=== PATIENT | female | born 1940 | race Caucasian/White ===

== ENCOUNTER → 2016-06-18 | Outpatient (CLI) | payer MEDICARE ==
--- NOTE | 2016-06-19 09:44 | MM ---
Reason for exam: screening (asymptomatic). Last mammogram was performed 1 year ago. History: Patient is postmenopausal. Physical Findings: A clinical breast exam by your physician is recommended on an annual basis and results should be correlated with mammographic findings. MG Screening Mammo w CAD Bilateral CC and MLO view(s) were taken. Prior study comparison: June 12, 2015, bilateral MG screening mammo w CAD. February 14, 2014, left breast MG work up mamm w CAD LT. The breast tissue is almost entirely fat. There is no discrete abnormality. No significant changes when compared with prior studies. ASSESSMENT: Negative, BI-RAD 1 RECOMMENDATION: Routine screening mammogram of both breasts in 1 year.
== END | disposition home or self-care (01) ==
LOC: RADMAMWWP 12:32
PROVIDERS: ATTEND Family Medicine
DX: Z12.31 Encounter for screening mammogram for malignant neoplasm of breast (principal)

== ENCOUNTER → 2016-07-23 | Outpatient (CLI) | payer MEDICARE ==
[~2016-07-23] MED LIST: FERUMOXYTOL 510 MG in SODIUM CHLORIDE 0.9% 50 ML IVPB ONE; SODIUM CHLORIDE 0.9% 250 ML in EMPTY BAG 1 BAG IV PRN; SODIUM CHLORIDE 0.9% 500 ML in EMPTY BAG 1 BAG IV PRN
[2016-07-23 10:42] VITALS: BP 170/69; PULSE 63; RESP 16; TEMP 98.5
== END | disposition home or self-care (01) ==
LOC: PROCWHC3 10:29
PROVIDERS: ATTEND Family Medicine
DX: D50.9 Iron deficiency anemia, unspecified (principal)
CPT/HCPCS: 96365; Q0138

== ENCOUNTER → 2016-08-01 | Outpatient (CLI) | payer MEDICARE ==
--- NOTE | 2016-08-01 13:21 | BD ---
EXAMINATION TYPE: MG DEXA axial skeleton. DATE OF EXAM: 08/01/2016 11:22 AM COMPARISON: NONE CLINICAL HISTORY: Height: 5 FT 1/2 IN Weight: 166NO FRAX RISK QUESTIONS: Alcohol (3 or more units per day): NO Family History (Parent hip fracture): NO Glucocorticoids (More than 3mos): NO (Ex: prednisone, prednisolone, methylprednisolone, dexamethasone, and hydrocortisone). History of Fracture in Adulthood: NO Secondary Osteoporosis: 1. Type 1 Diabetes: NO 2. Hyperthyroidism: NO 3. Menopause before 45: NO 4. Malnutrition: NO 5. Chronic liver disease: NO Rheumatoid Arthritis: NO Current Tobacco Use: NO RISK FACTORS HISTORY OF: Family History of Osteoporosis: YES Drink Alcohol: 1-2 TIMES A YEAR Active: YES Postmenopausal woman: EARLY 50'S MEDICATIONS: Additional Medications: GLIMIPERIDE,LISINOPRIL, GABAPENTIN, MUSCLE RELAXER, BLOOD PRESSURE Additional History: EXAM MEASUREMENTS: Bone mineral densitometry was performed using the [employer] System. Bone mineral density as measured about the Lumbar spine is: ----- L1-L4(G/cm2): 1.001 T Score Values are as follows: ----- L2: -2.3 ----- L3: -0.9 ----- L4: -2.1 ----- L1-L4: -1.5 PREV NOT DONE HERE Bone mineral density about the R hip (g/cm2): 0.750 Bone mineral density about the L hip (g/cm2): 0.770 T Score values are as follows: -----R Neck: -2.1 -----L Neck: -1.9 -----R Intertrochanter: -1.5 -----L Intertrochanter: -1.5 PREV NOT DONE HERE IMPRESSION: Osteopenia (T Score between -2.5 and -1 as noted by T score values There is slightly increased risk of fracture and the patient may be considered for treatment. Re-Screen 1-2 years. [facility] NOTE: T-SCORE=SD OF THE YOUNG ADULT MEAN.
== END | disposition home or self-care (01) ==
LOC: RADBDWWP 10:44
PROVIDERS: ATTEND Family Medicine
DX: M85.80 Other specified disorders of bone density and structure, unspecified site (principal)
CPT/HCPCS: 77080

== ENCOUNTER → 2017-01-03 | Outpatient (CLI) | payer MEDICARE ==
--- NOTE | 2017-01-03 21:47 | ECHOF ---
Referral Reason:R01.1 Cardiac Murmur MEASUREMENTS -------- HEIGHT: 157.5 cm WEIGHT: 72.6 kg BP: 141/61 IVSd: 1.1 cm (0.6 - 1.1) LVIDd: 4.7 cm (3.9 - 5.3) LVPWd: 1.3 cm (0.6 - 1.1) IVSs: 2.3 cm LVIDs: 2.8 cm LVPWs: 1.7 cm LAESV Index (A-L): 44.82 ml/m Ao Diam: 2.7 cm (2.0 - 3.7) AV Cusp: 1.3 cm (1.5 - 2.6) LA Diam: 4.1 cm (2.7 - 3.8) MV EXCURSION: 16.269 mm (> 18.000) MV EF SLOPE: 104 mm/s (70 - 150) EPSS: 0.4 cm MV E Pablo: 1.22 m/s MV DecT: 351 ms MV A Pablo: 0.96 m/s MV E/A Ratio: 1.28 RAP: 15.00 mmHg RVSP: 21.24 mmHg FINDINGS -------- Sinus rhythm. This was a technically good study. The left ventricular size is normal. There is borderline concentric left ventricular hypertrophy. Overall left ventricular systolic function is normal with, an EF between 55 - 60 %. The right ventricle is normal in size and function. The left atrium is mildly dilated. The right atrium is normal in size. Aortic valve is trileaflet and is mildly thickened. Mild mitral regurgitation is present. Trace tricuspid regurgitation present. The right ventricular systolic pressure, as measured by Doppler, is 21.24mmHg. Pulmonic valve appears structurally normal. The inferior vena cava is mildly dilated. The pericardium is normal. CONCLUSIONS -------- 1. Sinus rhythm. 2. Mild mitral regurgitation is present. 3. Trace tricuspid regurgitation present. 4. The right ventricular systolic pressure, as measured by Doppler, is 21.24mmHg. 5. Pulmonic valve appears structurally normal. 6. The inferior vena cava is mildly dilated. 7. The pericardium is normal. 8. This was a technically good study. 9. The left ventricular size is normal. 10. There is borderline concentric left ventricular hypertrophy. 11. Overall left ventricular systolic function is normal with, an EF between 55 - 60 %. 12. The right ventricle is normal in size and function. 13. The left atrium is mildly dilated. 14. The right atrium is normal in size. 15. Aortic valve is trileaflet and is mildly thickened. MANAGER MATERIALS MANAGEMENT: Ondina Ortiz RDCS
== END | disposition home or self-care (01) ==
LOC: RADECHMAIN 15:38
PROVIDERS: ATTEND Family Medicine
DX: I34.0 Nonrheumatic mitral (valve) insufficiency (principal); R01.1 Cardiac murmur, unspecified
CPT/HCPCS: 93306

== ENCOUNTER → 2017-01-22 | Outpatient (CLI) | payer MEDICARE ==
--- NOTE | 2017-01-22 10:29 | ECHOS ---
STRESS ECHOCARDIOGRAM DATE OF SERVICE: 01/22/2017 INDICATIONS: Shortness of breath. MEDICATIONS:: BASELINE HEART RATE: 77 BASELINE BLOOD PRESSURE: 162/69 MAXIMUM HEART RATE: 118 MAXIMUM BLOOD PRESSURE: 199/112 85% MPHR: 124 100% MPHR: 146 METS: 4 MAXIMUM STAGE REACHED: I TOTAL EXERCISE TIME: 3 minutes CLINICAL INFORMATION: Baseline EKG shows sinus rhythm, normal axis, normal intervals. Patient exercised on Jh protocol for a total of 3 minutes achieving 4 METs, 81% of predicted maximal heart rate without chest pain. Patient became extremely short of breath and hence, the stress test had to be stopped. Baseline echo shows normal left ventricular size, wall motion and systolic function. Post exercise, I do not see any exercise induced wall motion abnormalities. CONCLUSIONS: 1. Extremely poor exercise tolerance. 2. Inconclusive stress echo due to inability to attain target heart rate. 3. Consider further cardiac evaluation. MMODL / IJN: [id number] /
== END ==
LOC: RADNMMAIN 09:27
PROVIDERS: ATTEND Family Medicine
DX: R06.02 Shortness of breath (principal)
CPT/HCPCS: 93017; 93350

== ENCOUNTER → 2017-05-13 | Outpatient (CLI) | payer MEDICARE ==
[2017-05-14 11:56] LABS: Alpha 1 Anti-Trypsin 139 mg/dL (90 - 200)
[2017-05-18 21:35] LABS: Alternaria Alternata IgG 2.4 mcg/mL (< 13.6); Aspergillus fumigatus IgG Not detected (Not detected); Aureobasidium pullulans IgG < 2.0 mcg/mL (< 13.6); Cladosporium herbarium IgG 5.8 mcg/mL (< 14.7); Phoma ssp. IgG 2.3 mcg/mL (< 6.6); Saccaharomospora viridis Not detected (Not detected); Saccaharopoly. rectivirgula Not detected (Not detected)
== END | disposition home or self-care (01) ==
LOC: CPPFTMAIN 13:09
PROVIDERS: ATTEND Family Medicine
DX: R06.02 Shortness of breath (principal)
CPT/HCPCS: 36415; 82103; 82104; 83880; 85379; 86001; 86606; 86609; 94060; 94726; 94729

== ENCOUNTER → 2017-05-14 | Outpatient (CLI) | payer MEDICARE ==
[~2017-05-14] MED LIST changes: -FERUMOXYTOL 510 MG in SODIUM CHLORIDE 0.9% 50 ML IVPB ONE; +REGADENOSON 0.4 MG/5 ML SYRINGE IV ONE; -SODIUM CHLORIDE 0.9% 250 ML in EMPTY BAG 1 BAG IV PRN; -SODIUM CHLORIDE 0.9% 500 ML in EMPTY BAG 1 BAG IV PRN
--- NOTE | 2017-05-14 11:52 | EST ---
EXERCISE STRESS DATE OF SERVICE: 05/14/2017 AGE: 76 SEX: F HT: 5'2" WT: 170 PROTOCOL: Lexiscan Cardiolite Stress Test HEART RATE REST: 59 BLOOD PRESSURE REST: 138/70 MAXIMUM HEART RATE ACHIEVED: 70 MAXIMUM BLOOD PRESSURE: 193/46 85% MPHR: 124 100% MPHR: 146 INDICATIONS: Chest pain. CLINICAL INFORMATION: STRESS DATA: Pretesting physical examination showed a heart rate of 59, pressure is 138/70 mmHg. Baseline EKG showed sinus rhythm. The patient was given 0.4 mg of Lexiscan over 15 seconds per protocol. Max heart rate was 70 beats per minute and maximum pressure was 193/46 mmHg. Clinically, the patient did not have any symptoms of chest pain or discomfort and the EKG did not show any significant ST or T-wave abnormalities consistent with ischemia. CONCLUSION: 1. Nondiagnostic electrocardiogram stress testing in response to Lexiscan. 2. Please follow up on the Cardiolite portion on separate report. MMODL / IJN: [id number] /
--- NOTE | 2017-05-14 13:07 | NM ---
EXAMINATION TYPE: NM stress lexiscan cardiolite DATE OF EXAM: 05/14/2017 COMPARISON: NONE HISTORY: Shortness of breath, R06.02 and chest pain TECHNIQUE: After the intravenous administration of 10.7 mCi Tc 99m Sestamibi - Cardiolite resting SP ECT images acquired 55 minutes post injection. The patient received 0.4mg Lexiscan, 27.4 mCi Tc 99m Sestamibi - Stress images obtained [address] injection FINDINGS: Review of stress and rest SPECT images demonstrates no distinct perfusion abnormality. Gated analysi s shows normal wall motion with an estimated left ventricular ejection fraction of 64 %. IMPRESSION: No scintigraphic evidence for reversible ischemia.
== END | disposition home or self-care (01) ==
LOC: RADNMMAIN 08:02
PROVIDERS: ATTEND Family Medicine
DX: R06.02 Shortness of breath (principal)
CPT/HCPCS: 93017; 78452; A9500; J2785

== ENCOUNTER → 2017-05-29 | Outpatient (CLI) | payer MEDICARE ==
--- NOTE | 2017-05-29 15:06 | XR ---
EXAMINATION TYPE: XR chest 2V DATE OF EXAM: 05/29/2017 COMPARISON: NONE TECHNIQUE: PA and lateral views submitted. HISTORY: Shortness of breath FINDINGS: The lungs are clear and there is no pneumothorax, pleural effusion, or focal pneumonia. Heart size prominent. Atherosclerotic change aorta. Arthropathy of the shoulders. No overt failure. Atrophic jodi nge of the spine. IMPRESSION: 1. No acute process.
== END | disposition home or self-care (01) ==
LOC: RADXRMAIN 14:39
PROVIDERS: ATTEND Family Medicine
DX: R06.02 Shortness of breath (principal); E11.9 Type 2 diabetes mellitus without complications
CPT/HCPCS: 71046

== ENCOUNTER → 2017-07-02 | Outpatient (CLI) | payer MEDICARE ==
[~2017-07-02] MED LIST changes: +FERUMOXYTOL 510 MG in SODIUM CHLORIDE 0.9% 50 ML IVPB ONE; -REGADENOSON 0.4 MG/5 ML SYRINGE IV ONE; +SODIUM CHLORIDE 0.9% 500 ML in EMPTY BAG 1 BAG IV PRN
[2017-07-02 11:28] VITALS: BP 162/67; PULSE 69; RESP 16; TEMP 98.3
== END | disposition home or self-care (01) ==
LOC: PROCWHC3 11:12
PROVIDERS: ATTEND Family Medicine
DX: D50.9 Iron deficiency anemia, unspecified (principal)
CPT/HCPCS: 96365; Q0138

== ENCOUNTER 2017-07-24 08:05 | Day surgery (SDC) | payer MEDICARE ==
[2017-07-17 12:47] VITALS: BMI 31.1
[~2017-07-24 08:05] MED LIST changes: +ALPRAZolam 0.25 MG TAB PO PRN; +ALPRAZolam 0.5 MG TAB PO PRN; +ASPIRIN 325 MG TAB PO STA; -FERUMOXYTOL 510 MG in SODIUM CHLORIDE 0.9% 50 ML IVPB ONE; +NITROGLYCERIN SL TABS 0.4 MG TAB SUBLINGUAL PRN; +SODIUM CHLORIDE 0.9% 1,000 ML in EMPTY BAG 1 BAG IV ONE; -SODIUM CHLORIDE 0.9% 500 ML in EMPTY BAG 1 BAG IV PRN
[2017-07-24 08:36] VITALS: TEMP 98.6
[2017-07-24] MEDS ORDERED: INSULIN REGULAR 100 UNIT/ML VIAL SQ ONE (08:43)
[2017-07-24 08:49] LABS: Glucose,Whole Blood 206 mg/dL (75-99)
[2017-07-24 08:58] LABS: Basophils % (A) 1 %; Eosinophils # (A) 0.2 k/uL (0-0.7); Eosinophils % (A) 4 %; HCT 28.7 % (34.0-46.0); HGB 9.7 gm/dL (11.4-16.0); Lymphocytes # (A) 1.6 k/uL (1.0-4.8); Lymphocytes % (A) 29 %; MCH 31.1 pg (25.0-35.0); MCHC 33.8 g/dL (31.0-37.0); MCV 91.9 fL (80.0-100.0); Mean Platelet Volume 7.5; Monocytes # (A) 0.3 k/uL (0-1.0); Monocytes % (A) 5 %; Neutrophils # (A) 3.3 k/uL (1.3-7.7); Neutrophils % (A) 61 %; Platelet Count 209 k/uL (150-450); RBC 3.13 m/uL (3.80-5.40); RDW 13.3 % (11.5-15.5); WBC 5.5 k/uL (3.8-10.6)
[2017-07-24 09:05] LABS: Calcium 9.4 mg/dL (8.4-10.2); Potassium 4.2 mmol/L (3.5-5.1)
[2017-07-24] MEDS ORDERED: LIDOCAINE 2% INJ 20 MG/ML (20 ML MDV) ONE (09:10)
[2017-07-24] MEDS ORDERED: VERAPAMIL 2.5 MG/ML 2 ML AMP ONE (09:28)
[2017-07-24] MEDS ORDERED: MIDAZOLAM 2 MG/2 ML VIAL ONE (09:28)
[2017-07-24] MEDS: MIDAZOLAM 2 MG/2 ML VIAL IV ONE ×2 (09:42→10:15)
[2017-07-24] MEDS ORDERED: LIDOCAINE 2% INJ 20 MG/ML SQ ONE (09:46)
[2017-07-24] MEDS: LIDOCAINE 2% INJ 20 MG/ML SQ ONE ×2 (09:47→09:56)
[2017-07-24] MEDS ORDERED: fentaNYL (PF) 50 MCG/ML 2 ML AMP ONE (09:48)
[2017-07-24] MEDS ORDERED: HEPARIN SODIUM 1,000 UN/ML (10ML VL) ONE ×2 (09:48→10:31)
[2017-07-24] MEDS ORDERED: VERAPAMIL SYRINGE (5 MG/10 ML) INTRAARTER ONE (09:49)
[2017-07-24] MEDS ORDERED: HEPARIN SODIUM 1,000 UN/ML (10ML VL) IV ONE ×2 (09:51→10:31)
[2017-07-24] MEDS ORDERED: SODIUM CHLORIDE 0.9% 1,000 ML IV ONE (09:51)
[2017-07-24] MEDS: fentaNYL (PF) 50 MCG/ML 2 ML AMP IV ONE ×2 (09:51→10:43)
[2017-07-24] MEDS ORDERED: ADENOSINE 90 MG in SODIUM CHLORIDE 0.9% 60 ML IVP ONE (10:38)
[2017-07-24] MEDS ORDERED: IOPAMIDOL-370 125ML BTL INJ ONE (10:45)
[2017-07-24] MEDS ORDERED: RX INFO: IV CONTRAST WAS GIVEN 1 EACH MISC MISCELLANE PRN ×2 (10:52→10:53)
[2017-07-24] MEDS ORDERED: SODIUM CHLORIDE 0.9% 1,000 ML IV SCH (11:00)
[2017-07-24 11:32] LABS: Glucose,Whole Blood 163 mg/dL (75-99)
--- NOTE | 2017-07-24 11:36 | CC ---
CARDIAC CATHETERIZATION REPORT DATE OF SERVICE: July 24, 2017 PERFORMING PHYSICIAN: Raymond Jean-Baptiste MD, supervisor volunteer services. PROCEDURE PERFORMED: 1. Selective right and left coronary angiogram. 2. Left heart catheterization. 3. Fractional flow reserve of the LAD. INDICATION: This is a pleasant 76-year-old female patient with multiple risk factors for coronary artery disease, who continues to be symptomatic with chest discomfort and shortness of breath in spite of maximized medical treatment and in spite of multiple noninvasive testing. Because of that, heart catheterization was recommended. APPROACH: 1. Right radial artery. 2. Right common femoral artery. COMPLICATION: None. LEVEL OF SEDATION: Moderate with sedation length of 58 minutes. PROCEDURE DESCRIPTION: After obtaining an informed consent, the patient was brought to the cardiac laboratory technician. Initially the right radial artery was cannulated, but I had a hard time advancing the catheter at the level of the right elbow because of severe pain in the arm and because of that, the right radial approach was terminated and we pursued with the right femoral access. The right common femoral artery was cannulated using micropuncture technique, the micropuncture wire passed easily, then I placed a 6-Kosovan sheath in the right common femoral artery. After that, I did selective right and left coronary angiogram. I had a hard time engaging the right coronary artery because of the posterior takeoff. Finally I was able to engage it using an Amplatzer and an AL1 catheter. Selective left coronary angiogram was performed using a JL4 catheter. After that I did left heart catheterization using 6-Kosovan pigtail catheter. Then we did FFR of the LAD. Please see a separate paragraph for that. SELECTIVE CORONARY ANGIOGRAM: 1. The right coronary artery is a large caliber vessel and it is a dominant vessel. The proximal RCA has diffuse disease up to about 30% to 40%. The mid RCA has mild disease only and RCA distally bifurcates into PDA and PLV branches both are angiographically normal. 2. The left main is angiographically normal. It bifurcates into the left circumflex and left anterior descending artery. 3. The left circumflex is a large caliber vessel. It is a nondominant vessel. The left circumflex has mild to moderate disease in the proximal portion only. 4. The LAD: The proximal LAD just by the bifurcation of the first diagonal branch has a lesion appeared to be in the range of 60%. We did FFR and that came in to be 0.86. The mid LAD has mild disease only. The LAD distally appeared to be angiographically normal. The LAD gives rise into the first and second diagonal branches both have mild disease only. The second diagonal branch has moderate disease, but it is small caliber vessel. HEMODYNAMICS: The left ventricular end-diastolic pressure was 22 mmHg. No gradient was identified across the aortic valve. FFR OF THE LAD: Anticoagulation was initiated using heparin with continuous monitoring the ACT throughout the procedure. After that I did after zeroing the Doppler wire and equalizing between the Doppler wire and the guiding catheter which was JL4 guiding catheter, we did FFR by per IV adenosine infusion and the FFR came in to be 0.86. The procedure was completed without any complication. CONCLUSION: 1. Calcified right and left coronary systems. 2. 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 3. Mild to moderate disease involving the left circumflex coronary artery. 4. Moderate disease involving the proximal LAD with an FFR was performed and came in to be nonischemic at 0.86. 5. Elevated left ventricular end-diastolic pressure. POSTPROCEDURE MANAGEMENT: 1. Maximize medical treatment. 2. Follow up with the patient. MMODL / IJN: [id number] /
--- NOTE | 2017-07-24 11:36 | LTR ---
DATE OF SERVICE: 07/24/[address] Chou: Mrs. Kessler underwent a heart catheterization for continuous symptoms of exertional dyspnea concerning for angina. Heart catheterization revealed intermediate disease involving the mid LAD and we did fractional flow reserve and that came into be nonischemic and no need for stent. I want to thank you for allowing me to participate in her care and please do not hesitate to call if you have any questions or concerns. Sincerely, LUIS ANGEL / TIMN: [id number] /
[2017-07-24 12:24] VITALS: PULSE 52
[2017-07-24 17:59] VITALS: BP 145/65; RESP 20
== END 2017-07-24 18:25 | disposition home or self-care (01) ==
LOC: CATHCVL 08:05
PROVIDERS: ATTEND Internal Medicine Interventional Cardiology
DX: I25.110 Atherosclerotic heart disease of native coronary artery with unstable angina pectoris (principal); E11.22 Type 2 diabetes mellitus with diabetic chronic kidney disease; I12.9 Hypertensive chronic kidney disease with stage 1 through stage 4 chronic kidney disease, or unspecified chronic kidney disease; N18.9 Chronic kidney disease, unspecified; R01.1 Cardiac murmur, unspecified; D64.9 Anemia, unspecified; E78.00 Pure hypercholesterolemia, unspecified; Z79.84 Long term (current) use of oral hypoglycemic drugs; Z79.82 Long term (current) use of aspirin; Z79.51 Long term (current) use of inhaled steroids; Z79.899 Other long term (current) drug therapy; Z88.0 Allergy status to penicillin; Z87.891 Personal history of nicotine dependence
CPT/HCPCS: 93571; 93458; 80048; 85025; C1769 ×3; C1887; C1894 ×2; C1760; J2001; J2250; J3010; J1644; J0153; Q9967

== ENCOUNTER → 2017-08-18 | Outpatient (CLI) | payer MEDICARE ==
--- NOTE | 2017-08-18 09:23 | CT ---
EXAMINATION TYPE: CT chest wo con DATE OF EXAM: 08/18/2017 COMPARISON: NONE HISTORY: Patient complains of difficulty breathing. CT DLP: 665.2 mGycm. Automated Exposure Control for Dose Reduction was Utilized. TECHNIQUE: CT scan of the thorax is performed without IV contrast. High-resolution chest CT was perf ormed therefore there is limitation in visualization of pulmonary nodules given noncontiguous slices. FINDINGS: LUNGS: Dependent atelectasis versus in location on supine and prone imaging. Minimal subpleural retic ulation without honeycombing is also attributable to atelectasis. There is right middle lobe and ling ular peribronchial cuffing and cylindrical bronchiectasis. Symmetrical bronchiectasis is also seen wi thin the lower lobes. No mucus plugging or segmental atelectasis are seen. The central tracheal bronc hial tree is patent. No focal consolidation, pleural effusion or pneumothorax is visualized. Linear o f likely scarring is seen within the lingula. No findings to suggest interstitial pulmonary fibrosis. MEDIASTINUM: Lack of IV contrast is noted to limit evaluation for mediastinal and especially hilar ad enopathy. Prominent epicardial fat pad is seen. There is mild right hemidiaphragm elevation in compar arminda to the left. Moderate coronary artery calcifications are noted. There is enlargement of the main pulmonary artery measuring up to 3.0 cm, suggestive of underlying pulmonary arterial hypertension. T here are no definitive greater than 1 cm hilar or mediastinal lymph nodes. No cardiomegaly or peric ardial effusion is seen. OTHER: No additional significant abnormality is seen. IMPRESSION: 1. Bilateral asymmetric predominant cylindrical bronchiectasis and mild peribronchial cuffing. Differ ential includes postobstructive bronchiectasis, pulmonary aspiration diseases, an atypical infection such as mycobacterium avium complex. 2. No findings to suggest interstitial fibrosis. Evaluation for pulmonary masses limited given noncon tiguous slices on high-resolution chest CT. 3. Enlarged main pulmonary artery suggestive of underlying pulmonary arterial hypertension. 4. Moderate coronary artery calcifications, marker for coronary disease.
== END | disposition home or self-care (01) ==
LOC: RADCTMAIN 08:33
PROVIDERS: ATTEND Family Medicine
DX: J47.9 Bronchiectasis, uncomplicated (principal); J98.09 Other diseases of bronchus, not elsewhere classified
CPT/HCPCS: 71250

== ENCOUNTER → 2017-10-01 | Outpatient (CLI) | payer MEDICARE ==
[~2017-10-01] MED LIST changes: -ALPRAZolam 0.25 MG TAB PO PRN; -ALPRAZolam 0.5 MG TAB PO PRN; -ASPIRIN 325 MG TAB PO STA; +FERUMOXYTOL 510 MG in SODIUM CHLORIDE 0.9% 50 ML IVPB NR; -NITROGLYCERIN SL TABS 0.4 MG TAB SUBLINGUAL PRN; -SODIUM CHLORIDE 0.9% 1,000 ML in EMPTY BAG 1 BAG IV ONE; +SODIUM CHLORIDE 0.9% 500 ML in EMPTY BAG 1 BAG IV PRN
[2017-10-01 11:35] VITALS: BP 162/97; PULSE 56; RESP 16; TEMP 98.4
== END | disposition home or self-care (01) ==
LOC: PROCWHC3 11:22
PROVIDERS: ATTEND Family Medicine
DX: D50.9 Iron deficiency anemia, unspecified (principal)
CPT/HCPCS: 96365; Q0138

== ENCOUNTER 2017-10-22 07:48 | Day surgery (SDC) | payer MEDICARE ==
[2017-10-20 16:35] VITALS: BMI 31.1
[~2017-10-22 07:48] MED LIST changes: -FERUMOXYTOL 510 MG in SODIUM CHLORIDE 0.9% 50 ML IVPB NR; +LACTATED RINGERS 1,000 ML IV SCH; -SODIUM CHLORIDE 0.9% 500 ML in EMPTY BAG 1 BAG IV PRN
[2017-10-22 08:26] VITALS: RESP 16; TEMP 98.9
[2017-10-22] MEDS ORDERED: LIDOCAINE 1% 20 ML VIAL (10MG/ML) FOR IV START INTRADERMA ONE (08:26)
[2017-10-22 08:48] LABS: Glucose,Whole Blood 207 mg/dL (75-99)
[2017-10-22] MEDS ORDERED: PROPOFOL 10 MG/ML 20 ML VIAL IV ONE (09:08)
[2017-10-22] MEDS ORDERED: LIDOCAINE 1% INJ 10MG/ML (20 ML MDV) ONE (09:08)
[2017-10-22] MEDS ORDERED: LIDOCAINE 2% INJ 20 MG/ML INTRATRACH ONE (09:12)
[2017-10-22] MEDS ORDERED: EPINEPHrine 10 ML SYRINGE (0.1 MG/ML) MISCELLANE ONE (09:15)
[2017-10-22] MEDS ORDERED: LACTATED RINGERS 1,000 ML IV ONE (09:37)
[2017-10-22 10:01] VITALS: PULSE 88
[2017-10-22 10:25] VITALS: BP 144/68
--- NOTE | 2017-10-22 10:27 | P.PCN ---
Date of Procedure: 10/22/17 Preoperative Diagnosis: Abnormal CT chest, suspect atypical infection Postoperative Diagnosis: Same Surgeon: Linda Forrest Estimated Blood Loss (ml): 100 Condition: stable Disposition: same day Indications for Procedure: Abnormal CT chest, concern for atypical infection Operative Findings: EDAC Edematous mucosa Description of Procedure: After review of risks and benefits and discussion of alternative methods of diagnosis, the patient provided informed consent and is willing to proceed with evaluation is recommended. The patient, in endoscopy suite, was placed on continuous electrocardiogram, noninvasive blood pressure monitoring, and SpO2 monitoring. She was administered supplemental oxygen via nasal cannula and given IV sedation by the Department of anesthesia. The video bronchoscope was passed through the right nares and carried down to the level of the vocal cords the vocal cords were seen to be moving freely and phonation and respiration. The larynx is normal. The trachea was normal. The nic is sharp. The right mainstem bronchus was entered first where the right upper lobe, right middle lobe, and right lower lobe were identified. No endobronchial lesions were noted, however, the patient does have excessive airway collapse of the trachea and right mainstem which intermittently occludes the right mainstem bronchus. BAL and cytology brushing was performed at the right middle lobe. The bronchoscope was then directed into the left mainstem bronchus. The left upper lobe and lingula appeared somewhat edematous. The left lower lobe bronchus was quite edematous. BAL and cytology brushing was performed at the left lower lobe. Transbronchial biopsies were obtained from the left lower lobe, however, some bleeding occurred and further biopsies were unable to be obtained. The bleeding did cease after 2mL of epinephrine. The bronchoscope was then retracted and the procedure was terminated. The patient tolerated the procedure well. She was discharged to the recovery suite in stable and satisfactory position. The patient can be discharged home. Follow up in office in 1 week. Specimens sent for several studies. Post-operative CXR will be obtained.
--- NOTE | 2017-10-22 11:31 | XR ---
EXAMINATION TYPE: XR chest 1V portable DATE OF EXAM: 10/22/2017 COMPARISON: Prior chest 05/29/[address] chest 08/18/2017 HISTORY: Status post bronchoscopy TECHNIQUE: Single frontal view of the chest is obtained. FINDINGS: There is no pleural effusion or pneumothorax seen. Airspace disease suspected in the left upper lobe. The cardiac silhouette size is stable, enlarged. The osseous structures are intact. IMPRESSION: No evident complication status post bronchoscopy.
== END 2017-10-22 10:46 | disposition home or self-care (01) ==
LOC: ORWHC2ENDO 07:48
PROVIDERS: ATTEND Internal Medicine
DX: J42 Unspecified chronic bronchitis (principal); J84.112 Idiopathic pulmonary fibrosis; J82 Pulmonary eosinophilia, not elsewhere classified; J45.909 Unspecified asthma, uncomplicated; I25.10 Atherosclerotic heart disease of native coronary artery without angina pectoris; J47.9 Bronchiectasis, uncomplicated; E66.9 Obesity, unspecified; Z68.31 Body mass index [BMI] 31.0-31.9, adult; Z87.891 Personal history of nicotine dependence; E11.9 Type 2 diabetes mellitus without complications; Z79.84 Long term (current) use of oral hypoglycemic drugs; Z79.51 Long term (current) use of inhaled steroids; Z79.899 Other long term (current) drug therapy; Z88.0 Allergy status to penicillin
CPT/HCPCS: 87798 ×3; 87496; 87498; 87529; 88104; 88108; 88305; 88312; 87252; 87502; 87634; 87070; 87205; 87116; 87102; 87206; 71045; 31628; 31623; 31624; J2001 ×2; J0171; J2704; 31625

== ENCOUNTER → 2019-06-23 | Outpatient (CLI) | payer MEDICARE ==
--- NOTE | 2019-06-23 13:08 | CT ---
EXAMINATION TYPE: CT chest wo con DATE OF EXAM: 06/23/2019 COMPARISON: 08/18/2017 HISTORY: Pulmonary Fibrosis, Dyspnea CT DLP: 352.4 mGycm. Automated Exposure Control for Dose Reduction was Utilized. TECHNIQUE: CT scan of the thorax is performed without IV contrast. FINDINGS: LUNGS: Dependent atelectasis versus in location on supine and prone imaging. Minimal subpleural retic ulation without honeycombing is also attributable to atelectasis. There is right middle lobe and ling ular peribronchial cuffing and cylindrical bronchiectasis. 2 mm nodule left upper lobe axial image 15 . Symmetrical bronchiectasis is also seen within the lower lobes. No mucus plugging or segmental atelec tasis are seen. The central tracheal bronchial tree is patent. No focal consolidation, pleural effusion or pneumothorax is visualized. Linear of likely scarring is seen within the lingula. Interlobular septal thickening is seen to suggest mild interstitial pulmonar y fibrosis. . MEDIASTINUM: Lack of IV contrast is noted to limit evaluation for mediastinal and especially hilar ad enopathy. Prominent epicardial fat pad is seen. There is mild right hemidiaphragm elevation in compar arminda to the left. Moderate coronary artery calcifications are noted. There is enlargement of the main pulmonary artery measuring up to 3.2 cm, suggestive of underlying pulmonary arterial hypertension. H eart size is mildly enlarged. Atherosclerotic change of the aorta noted. OTHER: No additional significant abnormality is seen. Hypertrophic and degenerative change of the sp ine. IMPRESSION: 1. Pulmonary arteries increased in size bilaterally measuring 3.2 cm on the right 2.8 cm on the left, correlate for pulmonary arterial hypertension. 3. Dense coronary artery atherosclerotic disease correlate clinically. 3. Trace of pericardial fluid with cardiomegaly. 4. There does appear to be interlobular septal thickening at the lung bases and there is evidence of bronchiectasis. Findings are felt to be suggestive of interstitial pulmonary fibrosis involving the l verito bases. 5. There is a 2 mm left upper lobe pulmonary nodule too small to characterize and could be followed o n a 12 month basis. Likely benign.
== END | disposition home or self-care (01) ==
LOC: RADCTMAIN 12:32
PROVIDERS: ATTEND Internal Medicine Pulmonary Disease
DX: J47.9 Bronchiectasis, uncomplicated (principal); J84.10 Pulmonary fibrosis, unspecified; R91.1 Solitary pulmonary nodule; J98.4 Other disorders of lung; J82 Pulmonary eosinophilia, not elsewhere classified; R06.00 Dyspnea, unspecified; E66.9 Obesity, unspecified; E11.9 Type 2 diabetes mellitus without complications; Z88.0 Allergy status to penicillin
CPT/HCPCS: 71250

== ENCOUNTER → 2019-11-03 | Outpatient (CLI) | payer MEDICARE ==
--- NOTE | 2019-11-03 15:00 | XR ---
EXAMINATION TYPE: XR cervical spine comp DATE OF EXAM: 11/03/2019 TECHNIQUE: Frontal, lateral, oblique, and open mouth view of the cervical spine are obtained. HISTORY: M54.2 cervicalgia . Numbness of bilateral hands, more pain on the right side. No known inju ry. COMPARISON: None FINDINGS: The cervical spine is visualized in its entirety from C1 thru the top of T1 level. There i s straightening of the cervical lordosis. Grade 1 anterolisthesis of C3 on C4 and of C2 on C3. No acu te fracture or subluxation. There is multilevel disc space narrowing and degenerative spurring of C4- C7. Multilevel uncovertebral hypertrophy and facet arthropathy is seen. Neural foramina demonstrate b eli encroachment at C3-4 bilaterally, and C4-C5 and C5-6 on the left. The atlantoaxial joint is withi n normal limits on the open mouth view. The pre-vertebral soft tissue appears within normal limits. IMPRESSION: 1. No acute fracture or subluxation is seen in the cervical spine. 2. Multilevel degenerative changes as above.
== END | disposition home or self-care (01) ==
LOC: RADXRMAIN 11:58
PROVIDERS: ATTEND Nurse Practitioner Gerontology
DX: M47.812 Spondylosis without myelopathy or radiculopathy, cervical region (principal)
CPT/HCPCS: 72050

== ENCOUNTER 2020-02-25 08:52 | Day surgery (SDC) | payer MEDICARE ==
[2020-02-23 12:41] VITALS: BMI 30.9
[~2020-02-25 08:52] MED LIST changes: +ALPRAZolam 0.25 MG TAB PO PRN; +ALPRAZolam 0.5 MG TAB PO PRN; +ASPIRIN 325 MG TAB PO ONE; -LACTATED RINGERS 1,000 ML IV SCH; +NITROGLYCERIN SL TABS 0.4 MG TAB SUBLINGUAL PRN; +SODIUM CHLORIDE 0.9% 1,000 ML in EMPTY BAG 1 BAG IV ONE
[2020-02-25 09:23] LABS: Glucose,Whole Blood 138 mg/dL (75-99)
[2020-02-25 09:33] LABS: Basophils # (A) 0.1 k/uL (0-0.2); Basophils % (A) 1 %; Eosinophils # (A) 0.2 k/uL (0-0.7); Eosinophils % (A) 3 %; HCT 26.7 % (34.0-46.0); HGB 8.9 gm/dL (11.4-16.0); Lymphocytes # (A) 1.1 k/uL (1.0-4.8); Lymphocytes % (A) 21 %; MCH 32.1 pg (25.0-35.0); MCHC 33.4 g/dL (31.0-37.0); MCV 96.1 fL (80.0-100.0); Monocytes # (A) 0.4 k/uL (0-1.0); Monocytes % (A) 7 %; Neutrophils # (A) 3.7 k/uL (1.3-7.7); Neutrophils % (A) 68 %; Platelet Count 209 k/uL (150-450); RBC 2.78 m/uL (3.80-5.40); RDW 12.8 % (11.5-15.5); WBC 5.5 k/uL (3.8-10.6)
[2020-02-25 09:44] LABS: Potassium 5.3 mmol/L (3.5-5.1)
[2020-02-25] MEDS ORDERED: fentaNYL (PF) 50 MCG/ML 2 ML AMP ONE (11:11)
[2020-02-25] MEDS ORDERED: BENZOCAINE SPRAY 1 CAN MUCOUS MEM ONE ×2 (11:25→11:32)
[2020-02-25] MEDS ORDERED: IV FLUID CONTINUATION 1,000 ML IV ONE (11:32)
[2020-02-25] MEDS ORDERED: fentaNYL (PF) 50 MCG/ML 2 ML AMP IVP ONE (11:34)
[2020-02-25] MEDS ORDERED: MIDAZOLAM 2 MG/2 ML VIAL IVP ONE ×2 (11:34→11:38)
[2020-02-25] MEDS ORDERED: HEPARIN SODIUM 1,000 UN/ML (10ML VL) ONE (11:45)
[2020-02-25] MEDS ORDERED: VERAPAMIL 2.5 MG/ML 2 ML AMP ONE (11:45)
[2020-02-25] MEDS ORDERED: LIDOCAINE 1% INJ 10MG/ML (20 ML MDV) ONE (11:45)
[2020-02-25] MEDS ORDERED: fentaNYL (PF) 50 MCG/ML 2 ML AMP IV ONE (11:59)
[2020-02-25] MEDS ORDERED: MIDAZOLAM 2 MG/2 ML VIAL IV ONE (11:59)
[2020-02-25] MEDS ORDERED: LIDOCAINE 1% INJ 10MG/ML (20 ML MDV) SQ ONE (12:17)
[2020-02-25] MEDS ORDERED: HYDROmorphone 0.5 MG/0.5 ML SYRINGE IVP ONE (12:22)
[2020-02-25] MEDS ORDERED: RX INFO: IV CONTRAST WAS GIVEN 1 EACH MISC MISCELLANE PRN (12:49)
[2020-02-25] MEDS ORDERED: IOPAMIDOL-370 125ML BTL INJ ONE (12:54)
[2020-02-25] MEDS ORDERED: SODIUM CHLORIDE 0.9% 1,000 ML IV SCH (13:00)
[2020-02-25] MEDS ORDERED: hydrALAZINE HCL 20 MG/ML 1 ML VIAL ONE (13:01)
--- NOTE | 2020-02-25 13:24 | ECHOT ---
TRANSESOPHAGEAL ECHOCARDIOGRAM DATE OF SERVICE: February 25, 2020. INDICATION: Mitral regurgitation. COMPLICATION: None. LEVEL OF SEDATION: Moderate with sedation length of 20 minutes. PROCEDURE DESCRIPTION: After obtaining an informed consent, the patient was brought to the transesophageal echocardiogram suite. Pulse oximetry and heart rate monitors were attached the patient. Subsequently, the patient was given 2 mg of Versed and 50 mcg of fentanyl in divided doses. After that, the transesophageal echocardiogram was advanced through the bite guard to the mid esophageus where 2D echocardiogram images as well as color Doppler images of various cardiac structures were obtained. The MAREN was performed using 2D as well as continuous and pulse-wave Doppler, as well as color Doppler. FINDINGS: The left ventricular dimension and systolic function appeared to be normal. The ejection fraction appeared to be in the range of 50% to 55%. The right ventricle appeared to be of normal size and function with left atrium appeared to be dilated. Left atrial appendage appeared to be intact. The aortic valve is a trileaflet valve without stenosis with trace insufficiency. The mitral valve seems to be thickened with evidence of moderate mitral regurgitation. There was moderate tricuspid regurgitation seen. CONCLUSION: 1. Normal left ventricular dimension and systolic function. 2. Normal right ventricular dimension and systolic function. 3. Dilated left atrium. 4. Normal left atrial appendage. 5. Intact interatrial septum. 6. Trileaflet aortic valve without stenosis with mild insufficiency. 7. Thickened mitral valve leaflets with moderate mitral regurgitation. 8. Moderate tricuspid regurgitation. 9. Trace pericardial effusion. MMODL / IJN: [id number] /
--- NOTE | 2020-02-25 15:01 | CC ---
CARDIAC CATHETERIZATION REPORT DATE OF SERVICE: February 25, 2020 PERFORMING PHYSICIAN: Raymond Jean-Baptiste MD. PROCEDURE PERFORMED: 1. Right heart catheterization. 2. Selective right and left coronary angiogram. INDICATION: This is a 79-year-old female patient with history of coronary artery disease and valvular heart disease with mitral and tricuspid regurgitation, who was experiencing increasing in the symptoms of shortness of breath with minimal exertion. She underwent an echocardiogram which revealed evidence of moderate to severe mitral regurgitation. She underwent a MAREN today which revealed only moderate MR and she was brought today to undergo a heart catheterization. APPROACH: Right common femoral vein and right common femoral artery. COMPLICATION: None. LEVEL OF SEDATION: Moderate with sedation length of 25 minutes. PROCEDURE DESCRIPTION: After obtaining informed consent, the patient was brought to the cardiac cath lab tech. The right common femoral vein and right common femoral arteries were cannulated using micropuncture technique, the micropuncture wire passed easily. Then I placed a 6- Algerian sheath at the right common femoral artery. I also placed a 7-Algerian sheath in the right common femoral vein. Right heart catheterization was performed using 6-Algerian Freedom catheter. Selective right and left coronary angiogram performed using an AR catheter for the right and JL4 catheters for the left. The procedure was completed without any complication. HEMODYNAMICS: 1. The pulmonary capillary wedge pressure was 24 mmHg. 2. PA pressures were as follows: Systolic 52 and end-diastolic of 20 and mean of 32 mmHg. 3. RV pressures were as follows: Systolic is 50 and end-diastolic of 18 mmHg. 4. Right atrial pressure was 16 mmHg. SELECTIVE CORONARY ANGIOGRAM: 1. Right coronary artery is a large caliber vessel and it is a dominant vessel. The proximal RCA has tubular lesion appeared to be in the range of 30% to 40%. The mid RCA has mild disease only and the RCA distally appeared to be angiographically normal. The RCA is calcified. 2. The left main appeared to be angiographically normal. It bifurcates into left circumflex and left anterior descending artery. 3. The left circumflex is a large caliber vessel it is a dominant vessel. The left circumflex appeared to have mild disease only in the midportion and appeared to be calcified. 4. The LAD: The proximal LAD appeared to have mild disease only. The mid LAD has a tubular lesion appeared to be in the range of 60% to 70%. This is by the bifurcation of a large diagonal branch which seems to be normal. The mid and distal LAD appeared to have mild disease only. The LAD is definitely calcified. CONCLUSION: 1. Pulmonary hypertension. 2. Elevated pulmonary capillary wedge pressure. 3. Calcified right and left coronary systems. 4. Intermediate to severe disease involving the mid LAD appeared to be in the range of 60% to 70%. 5. Engaging the right coronary artery was performed using an AR catheter. POSTPROCEDURE MANAGEMENT: 1. Consider maximized medical treatment. 2. Aggressive cholesterol control. 3. Diuretics. 4. Consider PCI of the LAD if the patient continues to be symptomatic in spite of maximized medical treatment. MMODL / IJN: [id number] /
[2020-02-25 18:41] VITALS: RESP 16
[2020-02-25 18:43] VITALS: BP 131/56; PULSE 52
[2020-02-25 19:26] VITALS: TEMP 97.7
== END 2020-02-25 20:20 | disposition home or self-care (01) ==
LOC: CATHCVL 08:52 → 3NCARDOBS 12:57 → CATHCVL 20:20
PROVIDERS: ATTEND Internal Medicine Interventional Cardiology
DX: I25.10 Atherosclerotic heart disease of native coronary artery without angina pectoris (principal); I10 Essential (primary) hypertension; I27.20 Pulmonary hypertension, unspecified; I08.1 Rheumatic disorders of both mitral and tricuspid valves; E11.9 Type 2 diabetes mellitus without complications; J84.112 Idiopathic pulmonary fibrosis; E78.5 Hyperlipidemia, unspecified; E78.00 Pure hypercholesterolemia, unspecified; Z79.82 Long term (current) use of aspirin; Z79.84 Long term (current) use of oral hypoglycemic drugs; Z79.899 Other long term (current) drug therapy
CPT/HCPCS: 93312; 93325; 93456; 80048; 85025; C1769 ×3; C1751; C1894; J2250; J0360; J2001; J3010; J1170; Q9967

== ENCOUNTER → 2020-03-23 | Outpatient (CLI) | payer MEDICARE ==
--- NOTE | 2020-03-23 15:59 | US ---
EXAMINATION TYPE: US venous doppler duplex LE RT DATE OF EXAM: 03/23/2020 1:00 PM COMPARISON: NONE CLINICAL HISTORY: M79.661 Pain in Rt lower limb. Right lower leg swelling SIDE PERFORMED: Right TECHNIQUE: The lower extremity deep venous system is examined utilizing real time linear array sonog caroline with graded compression, doppler sonography and color-flow sonography. VESSELS IMAGED: Common Femoral Vein Deep Femoral Vein Greater Saphenous Vein * Femoral Vein Popliteal Vein Small Saphenous Vein * Proximal Calf Veins (* superficial vessels) Right Leg: Appears negative for DVT 3.0 x 1.0 x 1.8cm Camacho's cyst seen in right popliteal fossa Grayscale, color doppler, spectral doppler imaging performed of the deep veins of the right lower ext remity. There is normal flow, compressibility, vascular waveforms. IMPRESSION: No ultrasound evidence for acute DVT in the right lower extremity. Small popliteal cyst.
== END | disposition home or self-care (01) ==
LOC: RADUSWWP 12:23
PROVIDERS: ATTEND Internal Medicine Hematology & Oncology
DX: M71.21 Synovial cyst of popliteal space [Baker], right knee (principal); Z88.0 Allergy status to penicillin

== ENCOUNTER → 2023-01-17 | Outpatient (CLI) | payer MEDICARE ==
--- NOTE | 2023-01-18 08:31 | PE ---
EXAMINATION TYPE: PET CT fusion skull to thigh DATE OF EXAM: 01/17/2023 CLINICAL INDICATION:Female, 82 years old with history of R91.8; TECHNIQUE: Following the intravenous administration of 9.86 mCi of F-18 FDG, whole body images are performed from the skull base to the midthigh. Images are reviewed on the computer in the coronal, a xial, and sagittal planes. Reconstructed rotating images are created on independent workstation and reviewed on the computer. A non-contrast CT is performed in conjunction with the PET scan. Glucose level 122 mg/dL CT DLP: 384 mGycm, Automated exposure control for dose reduction was used. COMPARISON: CT 12/17/2022, PET/CT None, FINDINGS: Mediastinal SUV mean is 1.8. Hepatic parenchyma SUV mean is 2.6. SKULL BASE AND NECK: No suspicious radiotracer activity. CHEST, MEDIASTINUM, AND HILAR REGION: * Right upper lung airspace consolidation with patchy airspace disease extending to the periphery. 5 .1 x 4.3 cm and max SUV 9.9 * Subcarinal lymph node measuring 13 mm Max SUV 6.0 * low paratracheal lymph node measuring up to 2.6 cm Max SUV 7.8 * Lymphadenopathy extending along the medial aspect of the right lower lobe just inferior aspect of the hilum max SUV 5. ABDOMEN AND PELVIS: No suspicious radiotracer activity. MUSCULOSKELETAL STRUCTURES: No suspicious radiotracer activity. Right shoulder rotator cuff uptake li elieser secondary to degeneration with SUV 3.3 on the left 2.[address]: Bilaterally aphakia, atherosclerosis of the arterial vasculature. Scattered colonic diverti culosis. Right upper lung mass does obstruct multiple large airways. IMPRESSION: 1. 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 No evid ence for metastatic disease below the diaphragm. 2. Airspace opacities extending away from this mass could represent superimposed infectious process due to obstruction.
== END | disposition home or self-care (01) ==
LOC: RADPETMAIN 15:26
PROVIDERS: ATTEND Family Medicine
DX: R91.8 Other nonspecific abnormal finding of lung field (principal)
CPT/HCPCS: 78815; A9552

== ENCOUNTER 2023-01-31 12:16 | Day surgery (SDC) | payer MEDICARE ==
[~2023-01-31 12:16] MED LIST changes: -ALPRAZolam 0.25 MG TAB PO PRN; -ALPRAZolam 0.5 MG TAB PO PRN; -ASPIRIN 325 MG TAB PO ONE; +ATROPINE SULFATE 0.4 MG/ML 1 ML VIAL IM ONE; +LACTATED RINGERS 1,000 ML IV SCH; +LIDOCAINE 1% (10MG/ML) FOR IV START INTRADERMA PRN; -NITROGLYCERIN SL TABS 0.4 MG TAB SUBLINGUAL PRN; -SODIUM CHLORIDE 0.9% 1,000 ML in EMPTY BAG 1 BAG IV ONE
[2023-01-31 13:07] LABS: Glucose,Whole Blood 153 mg/dL (70-110)
[2023-01-31] MEDS ORDERED: fentaNYL (PF) 50 MCG/ML 2 ML AMP ONE (13:16)
[2023-01-31] MEDS ORDERED: PROPOFOL 10 MG/ML 20 ML VIAL IV ONE (13:16)
[2023-01-31] MEDS ORDERED: PHENYLEPHRINE-0.9% NACL SYG 1,000 MCG/10 ML SYRINGE ONE (13:16)
[2023-01-31] MEDS ORDERED: NEOSTIGMINE 1 MG/ML 10 ML VIAL ONE (13:16)
[2023-01-31] MEDS ORDERED: ROCURONIUM 10 MG/ML (5 ML VIAL) IV ONE (13:16)
[2023-01-31] MEDS ORDERED: LIDOCAINE 2% (PF) 20 MG/ML 5 ML VIAL ONE (13:16)
[2023-01-31] MEDS ORDERED: MIDAZOLAM 2 MG/2 ML VIAL ONE (13:16)
[2023-01-31] MEDS ORDERED: SUCCINYLCHOLINE CHLORIDE 200 MG/10 ML VIAL IV ONE (13:16)
[2023-01-31] MEDS ORDERED: GLYCOPYRROLATE 0.2 MG/ML 2 ML VIAL ONE (13:16)
[2023-01-31 14:23] VITALS: TEMP 97
[2023-01-31 14:37] LABS: Glucose,Whole Blood 143 mg/dL (70-110)
--- NOTE | 2023-01-31 14:46 | XR ---
EXAMINATION TYPE: XR chest 1V portable DATE OF EXAM: 01/31/2023 COMPARISON: 10/22/2017 HISTORY: Postbronchoscopy TECHNIQUE: Single frontal view of the chest is obtained. FINDINGS: Right upper lobe consolidation. There is a mass in the right upper lobe measuring 2.3 cm. Atherosclerotic change aorta. Prominence of the upper mediastinum could reflect adenopathy. Cardiac e nlargement is seen and there is underlying COPD. No pleural effusion. No sizable pneumothorax. Diffus e osteopenia. IMPRESSION: 1. Findings suspicious for an upper lobe mass and right lower lobe consolidation which could be on th e basis of adjacent infiltrate. 2. No pneumothorax.
--- NOTE | 2023-01-31 15:08 | PCN ---
PROCEDURE NOTE PROCEDURES PERFORMED: Bronchoscopy, airway examination, therapeutic lavage; bronchoalveolar lavage, right upper lobe; brushes, right upper lobe; transbronchial endobronchial biopsies, right upper lobe and transbronchial needle aspiration, station 7 or subcarinal node. PREOPERATIVE DIAGNOSIS: Rule out cancer. POSTOPERATIVE DIAGNOSIS: Rule out cancer. CO-SURGEON: Dr. Jimenez. DESCRIPTION OF PROCEDURE: The procedure took place in room #1 [facility]. There was informed consent and universal timeout. Anesthesia provided general anesthesia. After the patient was anesthetized, and on the ventilator, the bronchoscope was inserted through the bronchoscope adapter connected to the endotracheal tube. The bronchoscope was pushed through the endotracheal tube into the trachea. Tracheal nic was very widened and thick. Next, we did a thorough evaluation of the left lung. Left upper lobe proper and its 2 segments, lingula and its 2 segments and left lower lobe and its 4 segments were all found to be normal. Next, we evaluated the right lung, and noted that the right middle lobe and right lower lobe were normal. There was distinct abnormalities noted in the right upper lobe, the nic the right upper lobe from the bronchus intermedius was very thickened. Next, under fluoroscopic guidance, we did brushes to the area of the right upper lobe and that abnormal nic. Subsequent to that, under fluoroscopic guidance. We did endobronchial biopsies and transbronchial biopsies to the right upper lobe. Finally, we washed the right upper lobe. Next we did TBNA (transbronchial needle aspiration), through the subcarinal area, to sample of station 7 node. The patient tolerated the procedure well. There was minimal bleeding. All the specimens will be sent to the laboratory for analysis. A chest x-ray was ordered to rule out pneumothorax. There was no immediate complication. The patient tolerated the procedure well. I did have a chance to speak to the after the procedure. MMODL / IJN: [id number] / ISABELA
[2023-01-31 15:37] VITALS: BP 142/75; PULSE 75; RESP 18
[2023-01-31 23:31] LABS: Appearance,BF Bloody (Clear); RBC, Body Fluid 71500 /UL (0-2000)
[2023-02-03 10:05] LABS: Nucleated Cells, Body Fluid 100 /UL
== END 2023-01-31 15:56 | disposition home or self-care (01) ==
LOC: ORWHC2ENDO 12:16
PROVIDERS: ATTEND Internal Medicine Critical Care Medicine
DX: C34.11 Malignant neoplasm of upper lobe, right bronchus or lung (principal); E66.01 Morbid (severe) obesity due to excess calories; E11.9 Type 2 diabetes mellitus without complications; J45.909 Unspecified asthma, uncomplicated; J84.10 Pulmonary fibrosis, unspecified; I12.9 Hypertensive chronic kidney disease with stage 1 through stage 4 chronic kidney disease, or unspecified chronic kidney disease; N18.2 Chronic kidney disease, stage 2 (mild); M06.9 Rheumatoid arthritis, unspecified; Z87.891 Personal history of nicotine dependence; Z88.1 Allergy status to other antibiotic agents; Z88.0 Allergy status to penicillin; Z79.899 Other long term (current) drug therapy; Z79.51 Long term (current) use of inhaled steroids; Z68.27 Body mass index [BMI] 27.0-27.9, adult
CPT/HCPCS: 87798 ×3; 87496; 87498; 87529; 88104; 88108; 88305; 89050; 88342; 87502; 87634; 88341; 87070; 87205; 87116; 87102; 87206; 71045; 31629; 31625; 31623; 31624; J2250; J0330; J0461; J2710; J3010; J2704; J2001; J2371

== ENCOUNTER → 2023-02-27 | Outpatient (CLI) | payer MEDICARE ==
--- NOTE | 2023-03-10 00:42 | MR ---
EXAMINATION TYPE: MR brain wo/w con DATE OF EXAM: 02/27/2023 COMPARISON: Correlation PET/CT 01/17/2023 HISTORY: 82-year-old female C34.11, Lung cancer. TECHNIQUE: Multiplanar, multisequence images of the brain and brainstem were acquired before and aft er administration of 7 mL IV Gadavist. Diffusion weighted imaging is performed. FINDINGS: No evidence for acute infarction, hemorrhage, mass, mass effect, midline shift, herniation, effacemen t of basal cisterns, or extra-axial fluid collection. Mild age-related cerebral cortical volume loss. No hydrocephalus. Major intracranial flow voids are intact. There is a focal 3 mm nodular protuberance projecting poste riorly near the right carotid terminus. T2/FLAIR weighted sequences show mild scattered right periventricular deep white matter regions of sally th cerebral hemispheres. Midline structures demonstrate normal morphology. The craniocervical junction is normal. Post contrast images demonstrate no evidence of pathologic enhancement. Dural venous sinuses are pat ent. Mild mucosal thickening ethmoid air cells. Globes are intact. IMPRESSION: 1. No acute intracranial abnormality seen. No evidence for intracranial metastases. 2. Mild burden of chronic small vessel ischemic disease and mild age-related cerebral atrophy. 3. Findings suspicious for a 3 mm saccular aneurysm projecting posteriorly from the distal right ICA. Recommend further evaluation/confirmation either with thin cut CTA head versus MR angiography.
== END | disposition home or self-care (01) ==
LOC: RADMRIMAIN 15:05
PROVIDERS: ATTEND Internal Medicine Hematology & Oncology
DX: I67.82 Cerebral ischemia (principal); G31.1 Senile degeneration of brain, not elsewhere classified; C34.11 Malignant neoplasm of upper lobe, right bronchus or lung
CPT/HCPCS: 70553; A9585

== ENCOUNTER → 2023-06-20 | Outpatient (CLI) | payer MEDICARE ==
[2023-06-20 10:54] LABS: African American GFR (CKD) 69 (>60 ml/min/1.73 sqM); Blood Urea Nitrogen 24 mg/dL (7-17); Non-African American GFR(CKD) 60 (>60 ml/min/1.73 sqM)
--- NOTE | 2023-06-20 12:34 | CT ---
EXAMINATION: CT CHEST, ABDOMEN AND PELVIS WITH IV CONTRAST DATE OF EXAMINATION: 06/20/2023. COMPARISON: PET/CT on 01/17/2023.. INDICATION: Lung cancer. PROCEDURE: Axial CT of the chest, abdomen and pelvis was performed following the intravenous adminis tration of 80 ml Isovue 300. Coronal and sagittal reformats were performed. CT dose lowering techniq ues were used, to include: automated exposure control, adjustment for patient size, and/or use of ite rative reconstruction. FINDINGS: CHEST: Mediastinum and Sara: The thickness of the precarinal and pretracheal lymph node now measures up to 2 cm in diameter, previously 2.5 cm. The overall size of the right hilar mass measures approximately 3 .2 x 2.1 cm, previously approximately 4.3 x 5.1 cm in diameter. No left hilar adenopathy is seen. Pleural and Pericardial spaces: There are no pleural or pericardial effusions. Cardiovascular: There is mild vascular calcification throughout the thoracic aorta without evidence o f aneurysmal dilation or dissection. Moderate cardiomegaly and severe coronary artery calcifications are seen. Pulmonary Artery: There are no central pulmonary arterial filling defects. Lung Parenchyma and Airways: Parenchymal abnormalities are seen surrounding the right perihilar and u pper lobe mass compatible with treatment changes. There are additional basilar opacities and subpleur al areas of opacity which is compatible with chronic and fibrotic changes. There is no focal area of consolidation otherwise seen. ABDOMEN: Liver and Biliary system: Normal. Adrenal glands: Normal. Kidneys and ureters: Normal. Spleen: Normal. Pancreas: Normal. Gallbladder: Surgically absent. Lymph nodes, Peritoneum and mesentery: There is no mesenteric or retroperitoneal lymphadenopathy. Gastrointestinal tract: There are no dilated loops of bowel or free intraperitoneal air. . There is no evidence of appendicitis. There is mild descending colonic and moderate sigmoid colonic diverticu losis with some question of some minimal inflammatory changes around the proximal sigmoid and distal descending colon which may relate to diverticulitis. Aorta/IVC: There is significant vascular calcification and plaque seen throughout the abdominal aor ta without evidence of aneurysmal dilation or dissection.. IVC normal. Abdominal wall: Normal. PELVIS: Fluid: There is no free fluid in the pelvis. Lymph Nodes: There is no pelvic or inguinal lymphadenopathy.. Urinary bladder: Normal. BONES: There are no osseous destructive lesions.. ADDITIONAL SIGNIFICANT FINDINGS: None. IMPRESSION: 1. Improving right hilar mass and mediastinal mass described above. 2. Diverticulosis with question of mild diverticulitis at the region of the descending colonic and si gmoid colonic junction. 3. No additional evidence of metastatic disease seen.
== END | disposition home or self-care (01) ==
LOC: RADCTMAIN 10:09
PROVIDERS: ATTEND Internal Medicine Hematology & Oncology
DX: K57.30 Diverticulosis of large intestine without perforation or abscess without bleeding (principal); C34.11 Malignant neoplasm of upper lobe, right bronchus or lung; R22.2 Localized swelling, mass and lump, trunk; D46.0 Refractory anemia without ring sideroblasts, so stated; D47.2 Monoclonal gammopathy; D60.9 Acquired pure red cell aplasia, unspecified; Z71.3 Dietary counseling and surveillance; Z90.49 Acquired absence of other specified parts of digestive tract
CPT/HCPCS: 82565; 84520; 71260; 74177; 36415; Q9967

== ENCOUNTER → 2023-07-31 | Outpatient (CLI) | payer MEDICARE ==
[2023-07-31 14:17] LABS: African American GFR (CKD) 61 (>60 ml/min/1.73 sqM); Blood Urea Nitrogen 24 mg/dL (7-17); Non-African American GFR(CKD) 53 (>60 ml/min/1.73 sqM)
--- NOTE | 2023-07-31 19:58 | CT ---
EXAMINATION TYPE: CT ChestAbdPelvis w con DATE OF EXAM: 07/31/2023 INDICATION: f/u lung ca COMPARISON: 06/20/2023 CT DLP: 1040.7 mGycm CONTRAST: Performed with Oral Contrast and with IV Contrast, patient injected with 100 mL of Isovue 300. TECHNIQUE: Axial images at 5 mm thick sections. Reconstructed images in the coronal plane. Delayed images through the kidneys. FINDINGS: CT CHEST: Portion of the thyroid visualized is normal. Soft tissue density extends from the right hilum towards the periphery1 which was present previously. This currently measures 4.4 x 2.0 cm. Previous measurement 3.2 x 2.1 cm. Diffuse soft tissue thickening versus a pneumomediastinum may be matted lymphadenopathy. Subcarinal l ymph node appears prominent measuring 1.1 cm. Small right pleural effusion is present. Emphysematous changes present. The ascending aorta diameter at the level of the main pulmonary artery is 3.1 cm. The main pulmonary artery diameter at the bifurcation is 3.[address] ABDOMEN: Liver: Normal Spleen: Normal Pancreas: Normal Adrenal glands: The adrenal glands are normal. Gallbladder: Poorly visualized Kidneys: No masses are evident. No hydronephrosis is present. No cysts are present. Delayed images were obtained through the kidneys, which remain unremarkable. Aorta: Vascular calcification is within the aorta. Inferior vena cava: Normal. CT PELVIS: Loops of bowel within the abdomen and pelvis are normal. Multiple diverticuli are through the sigmoi d colon with no acute diverticulitis is evident. There are loops of bowel which are incompletely di stended or lack oral contrast limiting their evaluation. Appendix: Not identified. No dilated tubular structure or inflammatory change is evident Urinary bladder: Normal. Genitourinary structures: Uterus is normal. Adnexa are unremarkable. Osseous structures: No suspicious lytic or sclerotic lesions. IMPRESSION: 1. Slight enlargement of a right perihilar mass compatible with neoplasm. 2. Enlarged mediastinal adenopathy. 3. Diverticulosis without diverticulitis.
== END | disposition home or self-care (01) ==
LOC: RADCTMAIN 13:42
PROVIDERS: ATTEND Internal Medicine Hematology & Oncology
DX: C34.11 Malignant neoplasm of upper lobe, right bronchus or lung (principal); K57.90 Diverticulosis of intestine, part unspecified, without perforation or abscess without bleeding; R59.0 Localized enlarged lymph nodes
CPT/HCPCS: 82565; 84520; 71260; 74177; 36415; Q9967

== ENCOUNTER 2023-11-19 20:59 | Emergency (ER) | payer MEDICARE ==
--- NOTE | 2023-12-19 08:33 | CT ---
EXAM: CT Head Without Intravenous Contrast CLINICAL HISTORY: fall TECHNIQUE: Axial computed tomography images of the head/brain without intravenous contrast. CTDI is 45.2 mGy and DLP is 1004 mGy-cm. This CT exam was performed using one or more of the following dose reduction techniques: automated exposure control, adjustment of the mA and/or kV according to patient size, and/or use of iterative reconstruction technique. COMPARISON: None FINDINGS: Brain:No acute infarct or hemorrhage identified. No extra-axial fluid collection. No mass effect or midline shift. Scattered areas of hypoattenuation in the supratentorial white matter likely represent chronic small vessel ischemic changes. Ventricles and sulci: Prominence of the ventricles and sulci is likely secondary to cerebral volume loss. Bones: Mild hyperostosis frontalis interna. Degenerative changes of the temporomandibular joints. No bony lesion or acute fracture. Subcutaneous tissues: Mild right parietal soft tissue hematoma and laceration. Sinuses:Normal. No air-fluid levels or mucosal thickening. Mastoid air cells:Normal. Orbits:Bilateral lens implants. Other:Atherosclerotic calcifications in the intracranial vasculature. IMPRESSION: 1. No acute intracranial abnormality. 2. Mild chronic small vessel ischemic changes and cerebral volume loss. EXAM: CT Cervical Spine Without Intravenous Contrast CLINICAL HISTORY: fall TECHNIQUE: Axial computed tomography images of the cervical spine without intravenous contrast. CTDI is 9.9 mGy and DLP is 256 mGy-cm. This CT exam was performed using one or more of the following dose reduction techniques: automated exposure control, adjustment of the mA and/or kV according to patient size, and/or use of iterative reconstruction technique. COMPARISON: None FINDINGS: Bones: Straightening of the normal cervical lordosis. No acute fracture or bony lesion. Congenital non-fusion of the posterior arch of C1. Disc spaces:Degenerative changes of the spine. Minimal anterolisthesis of C4 on C5. Soft tissues:Normal. Other:Atherosclerotic changes of the vasculature. Stable hypodense nodule in the right thyroid lobe could be further evaluated with ultrasound if clinically indicated. Nonspecific patchy densities and ground glass opacities in the right lung apex. IMPRESSION: 1. No acute traumatic abnormality in the cervical spine. 2. Nonspecific patchy densities and ground glass opacities in the right lung apex. Radiologist: Bharti Balderrama M.D. Electronically Signed: 11/20/23 01:06 Study ready at 01:00 and initial results transmitted at 01:06 Results also transmitted to Film Room, Film Room @ [phone] (Fax) [facility]
== END 2023-11-20 01:40 | disposition home or self-care (01) ==
LOC: EC 20:59
CPT/HCPCS: 12001; 70450; 72125; 90471; 99283

== ENCOUNTER → 2024-01-16 | Outpatient (CLI) | payer MEDICARE ==
[2024-01-16 14:12] LABS: African American GFR (CKD) 45 (>60 ml/min/1.73 sqM); Blood Urea Nitrogen 27 mg/dL (7-17); Non-African American GFR(CKD) 39 (>60 ml/min/1.73 sqM)
--- NOTE | 2024-01-18 21:10 | CT ---
EXAMINATION TYPE: CT ChestAbdPelvis wo con DATE OF EXAM: 01/16/2024 INDICATION: Stage IV Lung Ca. COMPARISON: 07/31/2023 CT DLP: 571.4 mGycm CONTRAST: Performed with Oral Contrast. No intravenous contrast. TECHNIQUE: Axial images at 5 mm thick sections. Reconstructed images in the coronal plane. Delayed images through the kidneys. FINDINGS: CT CHEST: Portion of the thyroid visualized is normal. There is soft tissue density within the mediastinum with direct extension from the right apical lung mass. Findings are suspicious for stable appearing lymphadenopathy within the mediastinum. There is a dense consolidation in the right medial lung apex extending to the hilum. This extends int o the right middle lobe. Air bronchograms are present. This has significantly increased in size over the interval. The ascending aorta diameter at the level of the main pulmonary artery is 3.4 cm. The main pulmonary artery diameter at the bifurcation is 2.8 cm. Coronary artery calcification is present. Minimal pericardial effusion is present. CT ABDOMEN: Liver: Normal Spleen: Scattered punctate calcified granulomas are present. Pancreas: Normal Adrenal glands: The adrenal glands are normal. Gallbladder: Not visualized Kidneys: No masses are evident. No hydronephrosis is present. No cysts are present. There is a 0.3 cm nonobstructing renal stone in the posterior right mid kidney. Vascular calcification appears to b e within the left kidney. Aorta: Vascular calcification is within the aorta. Inferior vena cava: Normal. CT PELVIS: Loops of bowel within the abdomen and pelvis are normal. Scattered diverticula are present through th e sigmoid colon. There are loops of bowel which are incompletely distended or lack oral contrast l imiting their evaluation. Appendix: Normal as visualized. Urinary bladder: Normal. Genitourinary structures: Uterus is normal. Adnexa are normal. Osseous structures: No suspicious lytic or sclerotic lesions. IMPRESSION: 1. Significantly worsened consolidation right apex suspicious for metastatic disease. 2. Soft tissue type density within the mediastinum suspicious for metastatic lymph nodes. Diverticulo sis without acute diverticulitis. [facility], Workstation: [facility], 01/18/2024 9:07 PM
== END | disposition home or self-care (01) ==
LOC: RADCTMAIN 13:33
PROVIDERS: ATTEND Internal Medicine Hematology & Oncology
DX: C34.11 Malignant neoplasm of upper lobe, right bronchus or lung (principal); J98.4 Other disorders of lung
CPT/HCPCS: 36415; 71250; 74176; 82565; 84520

== ENCOUNTER → 2024-03-18 | Outpatient (CLI) | payer MEDICARE ==
[2024-03-18 10:31] LABS: African American GFR (CKD) 54 (>60 ml/min/1.73 sqM); Blood Urea Nitrogen 21 mg/dL (7-17); Non-African American GFR(CKD) 47 (>60 ml/min/1.73 sqM)
--- NOTE | 2024-03-18 12:42 | CT ---
CT chest, abdomen and pelvis with contrast. HISTORY: Lung cancer follow-up. COMPARISON: 07/31/2023. TECHNIQUE: Multiple axial images were obtained through the chest, abdomen and pelvis finding uneventf ul administration of nonionic IV contrast. FINDINGS: CT CHEST: There is marked interval worsening in the right hemithorax. There is interval increase in the right p leural effusion which is currently moderate in size. There is marked consolidative opacity involving the right upper upper lung with air bronchograms likely representing postobstructive pneumonitis seco ndary to the previously identified right hilar mass which is better appreciated on the prior study is likely obscured on the current study by the confluence of right upper lobe airspace consolidation. The left lung is clear. There is moderate cardiomegaly. There is no pulmonary embolism. There is no axillary or mediastinal adenopathy. There are no destructive osseous lesions within the thorax. CT abdomen and pelvis: There are surgical absence of the gallbladder. There is no biliary ductal dilatation. There is no focal mass or organomegaly involving the liver, pancreas, spleen or adrenal glands. No solid renal mass or hydronephrosis. The caliber of the abdominal aorta is normal and is no retroperitoneal adenopathy. The bowel loops are normal in caliber and is no dilatation or obstruction. There is diverticulosis of the descending and sigmoid colon without CT evidence of acute diverticulitis. There is no pelvic mass, free fluid, abscess or adenopathy. There is been interval development of mixed sclerotic density within T12 with a mild compression frac ture. IMPRESSION: 1. Significant interval worsening in the right hemithorax with increasing pleural effusion and right upper lobe lung consolidation likely postobstructive pneumonitis from the right hilar lung cancer. 2. No acute changes within the abdomen or pelvis. 3. Pathologic mild compression fracture of T12 with metastatic bone lesion of T12 [facility], , 03/18/2024 12:40 PM
== END | disposition home or self-care (01) ==
LOC: RADCTMAIN 09:55
PROVIDERS: ATTEND Internal Medicine Hematology & Oncology
DX: C34.11 Malignant neoplasm of upper lobe, right bronchus or lung (principal); D46.0 Refractory anemia without ring sideroblasts, so stated; D47.2 Monoclonal gammopathy; D60.9 Acquired pure red cell aplasia, unspecified; C79.51 Secondary malignant neoplasm of bone; M48.54XA Collapsed vertebra, not elsewhere classified, thoracic region, initial encounter for fracture; K57.30 Diverticulosis of large intestine without perforation or abscess without bleeding
CPT/HCPCS: 82565; 84520; 71260; 74177; 36415; Q9967

== ENCOUNTER → 2024-06-18 | Outpatient (CLI) | payer MEDICARE ==
[2024-06-18 14:44] LABS: African American GFR (CKD) 67 (>60 ml/min/1.73 sqM); Blood Urea Nitrogen 18 mg/dL (7-17); Non-African American GFR(CKD) 58 (>60 ml/min/1.73 sqM)
--- NOTE | 2024-06-21 06:23 | CT ---
EXAMINATION TYPE: CT ChestAbdPelvis w con DATE OF EXAM: 06/18/2024 COMPARISON: Prior CT March 18, 2024 and older studies CLINICAL INDICATION: Female, 83 years old with history of C34.11 MALIGNANT NEOPLASM OF UPPER LOBE, RI GHT BRO, F/u for lung cancer., TECHNIQUE: CT scan of the thorax, abdomen and pelvis is performed with oral and with IV Contrast, patient inject ed with 80ml mL of Isovue 300. CT DLP: 1028.3 mGycm. Automated Exposure Control for Dose Reduction was Utilized. FINDINGS: LUNGS: Persistent and stable small to moderate size right pleural effusion. Persistent chronic consol idation with air bronchograms in the right upper to midlung. Some peripheral reticulation in the left lung remains present. New 10 mm left mid lung pulmonary nodule axial image 24. HEART: Cardiomegaly redemonstrated. Moderate to severe coronary calcification again seen. Enlarged ri ght pulmonary artery redemonstrated raising concern for underlying pulmonary artery hypertension. MEDIASTINUM: Tiny pericardial effusion is redemonstrated. Abnormal soft tissue in the paracarinal re gion axial image 17 again seen . LIVER/GB: Gallbladder remains surgically absent. PANCREAS: No significant abnormality is seen. SPLEEN: Location of punctate calcification in the spleen is redemonstrated.. ADRENALS: No significant abnormality is seen. KIDNEYS: Cortical thinning bilaterally redemonstrated. The distended bladder with mild to moderate wa ll thickening. BOWEL: Oral contrast reaches level of the transverse colon. Scattered colonic diverticula greatest di stally are redemonstrated. No acute diverticulitis. No abnormal small or large bowel dilatation. GENITAL ORGANS: Anteverted small size uterus correlates with patient's postmenopausal age. Scattered tiny bilateral pelvic phleboliths. LYMPH NODES: No greater than 1cm abdominal or pelvic lymph nodes are appreciated. OSSEOUS STRUCTURES: Demineralization is redemonstrated. Stable mild height loss or chronic compressio n type fracture at the L1 vertebra. OTHER: No significant additional abnormality is seen. IMPRESSION: Right lung findings are stable. There is however new 10 mm left lung pulmonary nodule martin ggesting neoplastic malignant progression. Consider follow-up PET/CT to better evaluate. [facility], Workstation: [email or web address], 06/21/2024 6:20 AM
== END | disposition home or self-care (01) ==
LOC: RADCTMAIN 13:54
PROVIDERS: ATTEND Internal Medicine Hematology & Oncology
DX: C34.11 Malignant neoplasm of upper lobe, right bronchus or lung (principal); D46.0 Refractory anemia without ring sideroblasts, so stated; D60.9 Acquired pure red cell aplasia, unspecified; D47.2 Monoclonal gammopathy; K57.30 Diverticulosis of large intestine without perforation or abscess without bleeding; I27.21 Secondary pulmonary arterial hypertension; J90 Pleural effusion, not elsewhere classified
CPT/HCPCS: 82565; 84520; 71260; 74177; 36415; Q9967

== ENCOUNTER → 2024-09-03 | Outpatient (CLI) | payer MEDICARE ==
[2024-09-03 12:04] LABS: African American GFR (CKD) 52 (>60 ml/min/1.73 sqM); Blood Urea Nitrogen 25 mg/dL (7-17); Non-African American GFR(CKD) 45 (>60 ml/min/1.73 sqM)
--- NOTE | 2024-09-03 14:50 | CT ---
EXAMINATION TYPE: CT ChestAbdPelvis w con CT DLP: 990.1 mGycm, Automated exposure control for dose reduction was used. DATE OF EXAM: 09/03/2024 1:56 PM COMPARISON: Multiple CT chest abdomen pelvis with most recent 06/18/2024, PET CT 01/17/2023 CLINICAL INDICATION:Female, 83 years old with history of C34.11 MALIGNANT NEOPLASM OF UPPER LOBE, RIG HT BRO; PHH, Lung Ca. Technique: Multiple axial images of the chest, abdomen, and pelvis were obtained following the intrav enous administration of 100 mL Isovue-300. Oral contrast was administered. Two-dimensional coronal an d sagittal reconstructions were obtained. Findings: CHEST: LUNGS/ PLEURA: No pneumothorax. Scattered interlobular septal thickening. Decreased small right pleur al effusion with associated atelectasis. Redemonstration of right hilar masslike consolidation with a ir bronchograms within the right upper to midlung. Increasing size of left lower lobe superior segmen t 2.0 cm solid pulmonary nodule, previously measured up to 1.0 cm. There is some new satellite nodula rity measuring up to 5 mm. Some peripheral reticulation in the left lung remains present. AIRWAY: Patent and unremarkable.. HEART: Cardiomegaly is demonstrated. . No pericardial effusion. Moderate to severe coronary artery ca lcifications present. MEDIASTINUM: Abnormal soft tissue redemonstrated within the right hilar region. Similar small subcari nal lymph nodes. VASCULATURE: No aortic aneurysm. Mild to moderate atherosclerotic calcification of the aorta and its branches. MUSCULOSKELETAL: No acute osseous abnormalities. Diffuse bone demineralization. No aggressive osseous lesion. SOFT TISSUES/LYMPH NODES: Unremarkable. LOWER NECK: No significant findings. ABDOMEN: ABDOMEN LIVER: Subcentimeter probable vascular shunt within the periphery of the liver. GALLBLADDER AND BILE DUCTS: The gallbladder is surgically absent. PANCREAS: Unremarkable. SPLEEN: Scattered calcified granulomas. ADRENAL GLANDS: Unremarkable. KIDNEYS AND URETERS: No evidence of hydronephrosis or renal calculus. The kidneys enhance symmetrical ly. Cortical thinning bilaterally. Contrast is demonstrated within both collecting systems and proxim al ureters on delayed phase. Subcentimeter right renal cysts. No follow-up recommended. PELVIS BLADDER: Incompletely distended but grossly unremarkable. REPRODUCTIVE: Unremarkable. ABDOMEN & PELVIS STOMACH AND BOWEL: Small hiatal hernia, duodenum is unremarkable. Extensive distal colonic diverticul a without evidence for acute diverticulitis. Enteric contrast reaches the descending colon. No focal bowel wall thickening or surrounding inflammatory changes. No evidence of bowel obstruction. PERITONEUM: No evidence of pneumoperitoneum or free fluid. VASCULATURE: Moderate atherosclerotic calcifications are present throughout the abdominal aorta and i ts branches. No abdominal aortic aneurysm. Multiple pelvic phleboliths. MUSCULOSKELETAL: No acute osseous abnormalities. Stable mild height loss or chronic compression type fracture at the L1 vertebral. Diffuse bone demineralization. No aggressive osseous lesion. Grade 1 an terolisthesis of L4 on L5. LYMPH NODES: No evidence for lymphadenopathy. SOFT TISSUE/ABDOMINAL WALL: Unremarkable IMPRESSION: 1. Similar right mid to upper lung consolidative opacities with air bronchograms extending into the hilum consistent with known malignancy. However there is enlarging left lower lobe 2 cm pulmonary nod ule with new satellite nodules. Findings suggest malignant progression. Consider further evaluation w ith PET/CT. 2. Decreased small right pleural effusion. [facility], , 09/03/2024 2:48 PM
== END | disposition home or self-care (01) ==
LOC: RADCTMAIN 11:22
PROVIDERS: ATTEND Internal Medicine Hematology & Oncology
DX: C34.11 Malignant neoplasm of upper lobe, right bronchus or lung (principal); D60.9 Acquired pure red cell aplasia, unspecified; D46.0 Refractory anemia without ring sideroblasts, so stated; D47.2 Monoclonal gammopathy; Z71.3 Dietary counseling and surveillance; J90 Pleural effusion, not elsewhere classified
CPT/HCPCS: 82565; 84520; 71260; 74177; 36415; Q9967

== ENCOUNTER → 2024-09-23 | Outpatient (CLI) | payer MEDICARE ==
--- NOTE | 2024-09-26 14:35 | PE ---
EXAMINATION TYPE: PET CT fusion skull to thigh DATE OF EXAM: 09/23/2024 COMPARISON: CT chest abdomen pelvis 09/03/2024 Prior PET/CT: 01/17/2023 CLINICAL INDICATION: Female, 83 years old with history of C34.11 Lung ca, TECHNIQUE: Following the intravenous administration of 10.26 mCi of F-18 FDG, whole body images are performed PET CT fusion skull to thigh. Images are reviewed on the computer in the coronal, axial, a nd sagittal planes. Reconstructed rotating images are created on independent workstation and reviewe d on the computer. A localization and attenuation correction CT is performed in conjunction with e PET scan. DLP: 629.3 mGycm SCAN: Subsequent Blood glucose: 102 mg/dL Average Mediastinum SUV: 1.9 cm Average Liver SUV: 2.48 FINDINGS: NECK: No abnormal uptake THORAX: Focus of radiotracer is within posterior left lung nodule with an SUV of 9.80, image 78. Ther e is mild uptake within the consolidation of the right perihilar region. SUV up to 3.24. Differential does include inflammatory changes this level. ABDOMEN: There is a focus of radiotracer accumulation within the inferior right lobe liver, image 132 , SUV 7.18. There is a smaller adjacent uptake, image 133, SUV 5.11. Findings are suspicious for righ t lobe liver metastasis. PELVIS: No abnormal uptake OSSEOUS STRUCTURES: No abnormal uptake LOCALIZATION CT: Small right pleural effusion is present COMPARISON: None IMPRESSION: 1. Uptake within the posterior left lung nodule compatible with neoplasm. 2. Mild uptake within the right lung consolidation. Inflammatory change and neoplasm are within the d ifferential. 3. Two foci of radiotracer uptake within the lower liver compatible with metastatic disease. 4. Small right pleural effusion. [facility], , 09/26/2024 2:33 PM
== END | disposition home or self-care (01) ==
LOC: RADPETMAIN 15:41
PROVIDERS: ATTEND Internal Medicine Hematology & Oncology
DX: C34.11 Malignant neoplasm of upper lobe, right bronchus or lung (principal); D46.0 Refractory anemia without ring sideroblasts, so stated; D47.2 Monoclonal gammopathy; D60.9 Acquired pure red cell aplasia, unspecified; J90 Pleural effusion, not elsewhere classified; R91.8 Other nonspecific abnormal finding of lung field
CPT/HCPCS: 78815; A9552